=== PATIENT | female | born 2000 | race Caucasian/White ===

== ENCOUNTER → 2021-04-12 | Outpatient (CLI) | payer BC | LOC: LAB 16:00 | PROVIDERS: ATTEND Nurse Practitioner Family | DX: U07.1 COVID-19 (principal) | CPT/HCPCS: 36415; 84484 ==

== ENCOUNTER → 2021-05-23 | Outpatient (CLI) | payer BC ==
--- NOTE | 2021-05-23 16:13 | RAD ---
Study: XR CHEST 2V Indication: Shortness of breath. Comparison: None. Findings: Unremarkable cardiomediastinal silhouette and jose miguel. Symmetric haziness at the lower aspect of both anisa ngs relates to summation artifact from the overlying breasts. No focal airspace infiltrate, pleural e ffusion or pneumothorax. Impression: No acute radiographic abnormality of the chest. Electronically signed by: ERINN PRASAD MD (05/23/2021 4:11 PM) [facility]
== END ==
LOC: RAD 15:52
PROVIDERS: ATTEND Nurse Practitioner Family
DX: R06.02 Shortness of breath (principal)
CPT/HCPCS: 36415; 71046; 85379